=== PATIENT | female | born 1960 | race Caucasian/White ===

== ENCOUNTER → 2019-01-15 16:58 | Outpatient (CLI) | payer OTHER, SELFPAY ==
[2016-04-14 06:06] VITALS: BMI 25.6
[2019-01-18 16:20] LABS: HPV Reflexed? NOT INDICATED
== END ==
PROVIDERS: Visit Provider Obstetrics & Gynecology
DX: Z12.4 Encounter for screening for malignant neoplasm of cervix (principal)
CPT/HCPCS: 88175; G0145

== ENCOUNTER 2020-07-06 06:17 | Day surgery (SDC) | payer OTHER, SELFPAY ==
--- NOTE | 2020-06-26 11:55 | EKG12_ITS ---
Test Reason : PREOP Blood Pressure : / mmHG Vent. Rate : 064 BPM Atrial Rate : 064 BPM P-R Int : 166 ms QRS Dur : 072 ms QT Int : 392 ms P-R-T Axes : 063 000 054 degrees QTc Int : 404 ms Normal sinus rhythm Normal ECG Confirmed by PHI MOROCHO, AXEL ([id number]), restaurant expeditor GLENIS HERNANDEZ ([id number]) on 06/30/2020 8:07:35 AM Referred By: Igor Olson Confirmed By:TRISHA YIP MD
[2020-07-02 12:44] LABS: Hematocrit 42.5 % (37-47); Hemoglobin 13.5 g/dL (12.0-15.0); Mean Corp Hgb Conc 31.8 g/dL (32-36); Mean Corpuscular Hgb 28.2 pg (27.0-32.0); Mean Corpuscular Volume 88.9 fL (81-99); Mean Platelet Vol. 11.9 fl (6.2-12.0); Platelet Count 218 K/mm3 (150-450); RBC Distribution Width CV 13.5 % (11.6-14.6); RBC Distribution Width SD 44.1 fl (35.1-43.9); Red Blood Count 4.78 M/mm3 (4.2-5.4); White Blood Count 6.9 K/mm3 (4.4-11.0)
[2020-07-02 12:53] LABS: International Normalized Ratio 1.1; Partial Thromboplast Time 25.9 Seconds (24.1-36.2); Prothrombin Time (Protime)PT. 13.7 SECONDS (11.7-14.9)
[2020-07-02 13:28] LABS: ALB/GLOB Ratio 0.9 RATIO (0.9-2.4); AST(SGOT) 20 U/L (15-37); Alanine Aminotransfer ALT/SGPT 30 U/L (13-56); Albumin, Serum 3.7 g/dL (3.2-5.0); Alkaline Phosphatase 110 U/L (45-117); Anion Gap 6 (5-15); BUN 13 mg/dL (7-18); BUN/Creat Ratio 13.2 RATIO (10-20); Calcium,Total 9.2 mg/dL (8.5-10.1); Chloride 108 mmol/L (98-107); Creatinine, Serum 0.98 mg/dL (0.55-1.02); EST Glomerular Filtration Rate 62 mL/min (>60); Est Glom Filt Rate - Afr Amer 75 mL/min (>60); Glucose 88 mg/dL (74-106); Potassium 3.7 mmol/L (3.5-5.1); Protein, Total 7.7 g/dL (6.4-8.2); Sodium Level 140 mmol/L (136-145)
--- NOTE | 2020-07-05 20:51 | HP.PCM_ITS ---
History and Physical Date of Admission: 07/06/20 Surgical History and Physical Beatriz Meng, a 60 year old female 3 0 0 0 3, presents for Vaginal Hysterectomy and AP Repair on July 06, 2020 at 8:30. -- Symptomatic Uterovaginal Prolapse -- prolapse of uterus and bladder which began years ago. It occurs all the time. It is located in the vagina. Severity is severe and worsening; It is aggravated by standing or walking. It is relieved by laying down. Additional comments are: comes completely out; now affecting urine; extremely bothersome. UTERUS: 6 x 3.6 x 5.4 cm and is inhomogenous in texture. ENDOMETRIAL ECHO: 1 mm; R OVARY: 2.7 x 2.3 x 2.7 cm and contains a simple cyst measuring 1.8 x 1.7 x 2.2 cm. This is slightly smaller in size than seen on the previous ultrasound;L OVARY: Not seen and adnexa appears normal. MEDICATIONS HISTORY: Current medications prescribed by our practice are: 1. Estrace 0.01% (0.1 mg/gram) vaginal cream, one half gm per vagina twice weekly at Patient is also takin. pantoprazole 40 mg tablet,delayed release (DR/EC), daily 2. topiramate 100 mg tablet, daily ALLERGIES: NKDA Infections - Chicken pox and Measles Illnesses - Reflux, Migraines Accidents - no injuries of consequence Hospitalizations - see surgery Review of Systems: GENERAL - Denies fever, or chills SKIN - Denies skin changes EYES - Denies visual changes EARS - Denies difficulty hearing NOSE - Denies nasal congestion or bleeding MOUTH - Denies sore throat or difficulty swallowing NECK - Denies pain or swelling RESPIRATORY - Denies shortness of breath or wheezing CARDIOVASCULAR - Denies palpitations or chest pain GASTROINTESTINAL - Denies nausea, vomiting, diarrhea, constipation GENITOURINARY - Denies dysuria, frequency of urination, incontinence of urine MUSCULOSKELETAL - Denies joint or muscle pain NEUROLOGICAL - Denies localized numbness or weakness PSYCHIATRIC - Denies depression or anxiety ENDOCRINE - Denies heat or cold intolerance, weight loss or gain HEMATO-IMMUNOLOGIC - Denies excesive bleeding with cuts SOCIAL HISTORY: Alcohol Use - RARELY Smoking - 1/2 pack/day--advised to quit Diet - moderate, balanced diet Lifestyle - moderate stress lifestyle and Exercise - minimal Employer - [employer]) 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 Father: Lung cancer. Maternal Grandmother: Aneurysm. Paternal Grandmother: Heart Disease. Paternal Grandfather: Cancer of unknown orgin. MENSTRUAL HISTORY: LMP Known?- PostmenopausalAmount/Duration - 2 days, Regularity - Irregular, LMP - 02/11/14, Age Onset Menarche - 15 PAST PREGNANCIES: Total Pregnancies - 3; Full Term Pregnancies - 3; Premature - 0; Abortions, Induced - 0; Abortions, Spontaneous - 0; Ectopics - 0; Multiple Births - 0; Living Children - 3 SURGICAL HISTORY: 1. right knee surgery 2. left hand surgery 3. Tonsils, 1967 4. Tubal PHYSICAL EXAM BP- 138/82 Sitting, Right arm, regular cuff Weight- 156.52806 lbs Height- 63.75 inch BMI:27.04 CONSTITUTIONAL - NAD, well nourished, and well developed SKIN - No rash, lesions, or ulcers HEENT - Normocephalic, PERRLA, EOMI NECK - No nodes, no nuchal rigidity and thyroid normal size and texture LYMPH NODES - Palpation of lymph nodes in neck and groins within normal limits LUNGS - CTA x2 without wheezes, crackles or rales CARDIAC - Regular rate and rhythm without rubs, murmurs, or gallops BREAST - No dominant masses, no tenderness, no axillary adenopathy, no nipple discharge, no skin changes ABDOMEN - Without hepatosplenomegaly, distention, masses, rebound, or guarding; normal bowel sounds; no hernias EXTREMITIES - No edema or calf tenderness NEUROLOGICAL - Cranial nerves II-XII grossly intact PSYCHIATRIC - A and O to time, place, person, mood and affect External Genitial Vagina - non-tender without lesions Urethra/Urethral Meatus - non-tender Bladder - non-tender Vagina - loss of rugae, large cystocele and large rectocele Cervix - without cervical motion tenderness and has normal size and features without evident lesions, stenosis noted. and cervix protrudes to the introitus with bearing down Uterus - normal size, mobile and no tenderness Adnexa - no tenderness, no masses and mobile ASSESSMENT/PLAN: Incomplete Uterovaginal Prolapse Severe and symptomatic and pt desires treatment. Discussed option of pessary vs surgery and pt desires we proceed with Vaginal Hyst and AP Repair. Discussed RBAs and all questions answerd. Started intravinal estrogen in preparation.
[2020-07-06] VITALS (13 sets, daily range): BP systolic 87–153; BP diastolic 50–73; PULSE 44–58; RESP 16; TEMP 36.2–36.8; O2SAT 92–100; BMI 26.1
[2020-07-06] MEDS: Lactated Ringers 1,000 ML 100 ML IV ×3 (07:01→11:14)
[2020-07-06] MEDS: Cefotetan 2 GM in 0.9% NS 100 ML IV (08:35)
--- NOTE | 2020-07-06 08:35 | HYST_PTH ---
PATIENT: BJ GONG LOC: [facility] – [place] U#:[id number] AGE/SX: 60/F ROOM: RE07/06/[address]: Dr. Igor Olson MD : [id number] BED: DIS: 07/07/2020 SPEC #: [id number] RECD: 07/06/20 11:53 STATUS: KITA RETessa #: [id number] MOIRA: 07/06/20 08:[address]: Igor Olson DEPT: SURGICAL PATHOLOGY RECD BY: Carrol Love ENTERED: 07/06/20 12:05 SP TYPE: HYSTERECT OTHR DR: Dr. Gordo Higgins MD Tissues: Uterus, NOS Procedures: Surgery Specimen Level II Surgery Specimen Level V HEADER OPERATION: Vaginal hysterectomy, A & P repair PRE-OP DIAGNOSIS: Incomplete uterovaginal prolapse TISSUE SUBMITTED: Uterus and vaginal mucosa MICROSCOPIC DIAGNOSIS Uterus, hysterectomy: Cervix - squamous metaplasia, mild chronic inflammation and nabothian cysts. Endometrium - weakly proliferative endometrium. Myometrium - adenomyosis. Vaginal mucosa, anterior and posterior repair: Hyperkeratosis and mild chronic inflammation. No evidence of dysplasia. AM:clarita 07/07/20 MICROSCOPIC DESCRIPTION Slides are reviewed. GROSS DESCRIPTION Received in fixative is one container labeled with the patient's name and designated uterus and vaginal mucosa. The specimen consists of a hysterectomy specimen consisting of uterus with cervix and detached pieces of mucosal tissue. The uterus with cervix weighs 48 gm and measures 8 x 4 x 3 cm. The serosal surface is pollack, glistening. The ectocervical mucosa is unremarkable. The external os is oval in contour. The endocervical canal measures 2.5 cm in length and the endocervical mucosa is pollack, glistening and unremarkable. The triangular endometrial cavity measures 4 cm in length and up to 2.5 cm in width. The endometrium is pollack, glistening without any mass lesion and measures 0.1 cm in thickness. Sections of the uterine wall do not reveal any mass lesion and measures up to 2.5 cm in thickness. Also received in the container are detached four variably sized pieces of pollack mucosal tissue measuring in aggregate 5.5 x 5.5 x 0.4 cm. No mucosal lesion is identified. Numerous instrumentation rice are noted. Goldsmith Apprentice sections are submitted in seven cassettes as follows: 1 - anterior cervix, 2 - posterior cervix, 3 & 4 - anterior uterine wall, 5 & 6 - posterior uterine wall, 7 - mucosal tissue. / SJ:clarita 07/06/20 TC:5 CPT: 80276, 63017
--- NOTE | 2020-07-06 10:26 | PCM.OPRPT ---
Report of Operation Date of Procedure: 07/06/20 Pre-Operative Diagnosis: Uterovaginal Prolapse, Cystocele, Rectocele Post-Operative Diagnosis: Uterovaginal Prolapse, Cystocele, Rectocele Surgery/Procedure Performed:: Vaginal Hysterectomy and Anterior Posterior Repair Description of Surgical Findings:: 6 cm uterus with normal-appearing fallopian tubes and ovaries. Cystocele which protruded 3 cm outside the introitus along with the cervix and large rectocele. drafter civil (cad): Noe Kamara drafter civil (cad): Yamini Godfrey Type of Anesthesia:: General - LMA Anesthesiologist: Carmelita Sutton Drains: Francisco to straight drain Estimated Blood Loss (mL): 100 cc Fluids Replaced: Crystalloid Description of Procedure: Surgeon: Igor Olson MD, FACOG Indications: This is a 60-year-old patient who is been having problems with uterovaginal prolapse. Conservative measures have not been helpful. Given this the patient desires that we proceed the above procedure. She has been counseled regarding the risk and indications of this procedure including the possibility of bleeding, infection, and injury to surrounding structures such as bowel bladder. All questions were answered. Procedure: Patient was taken to the operating room where after induction of general anesthesia she was placed in the dorsal lithotomy position and prepped and draped in the usual sterile fashion. A Francisco catheter was placed. Anterior cervix was grasped with a tenaculum and anterior cervix circumscribed with cautery on a setting of 35 W coagulation. Anterior vaginal mucosa was undermined and anterior peritoneum were entered after approximately 2 bites on pedicles. The posterior aspect of the cervix was circumscribed with a knife and posterior peritoneum was entered. Progressive bites were taken on either side of the uterine cervix and each pedicle ligated with 0 Vicryl suture. Superior pedicles were ligated ?2 with 0 Vicryl suture and sidewall pedicles were examined and oversewn where necessary with [id number] 0 Vicryl suture to achieve hemostasis. Posterior vaginal cuff was oversewn with running locked 0 Vicryl suture. Hemostasis was noted and peritoneum was closed in a pursestring fashion incorporating superior pedicles into the stitch. Vaginal cuff was then closed front to back with interrupted [id number] 0 Vicryl suture. Hemostasis was noted. Attention was turned toward the anterior repair portion of the procedure. Anterior vaginal mucosa was undermined and divided and then imbricated toward the midline with interrupted 0 Vicryl sutures. Vaginal mucosa was trimmed and then closed with interrupted 2-0 chromic suture. Vaginal cuff was then closed front to back with interrupted [id number] 0 Vicryl suture. Hemostasis was noted. Attention was turned toward the posterior repair portion of the procedure. Remnants of the hymenal ring were grasped with Allises and a V-shaped incision was made in the perineum. Rectovaginal mucosa was then undermined divided and then imbricated toward the midline with interrupted 0 Vicryl suture. Vaginal mucosa was trimmed and then closed with running locked 2-0 chromic suture. Remnants of the bulbocavernosus muscles were identified and brought toward the midline with a single [id number]-trilx 0 Vicryl suture and perineum was closed in the usual fashion with running and subcuticular, and [id number] 2-0 chromic suture. Hemostasis was noted. Francisco catheter was again opened and clear yellow urine was noted. Vagina was packed with iodoform tape. Patient tolerated the procedure well was taken to recovery room in satisfactory condition; sponge instrument and needle counts were all reportedly correct. Estimated blood loss for the case was 100 cc. Ancef 2 g IV was given prior to beginning the operative procedure. There were no apparent complications of the surgery. Specimen to pathology was uterus and vaginal mucosa. Grafts/Implants Used: None - Complications None - Admit VTE Documentation VTE Present on Admission: Yes VTE Mechan Device Prophylaxis: SCD's VTE Pharm Prophylaxis ordered?: Yes
--- NOTE | 2020-07-06 10:46 | PCM.DC.VHY ---
Discharge Diet: No Restrictions Discharge Activity: Return to Normal Activity, May Not Drive - while taking narcotic pain medications., May Shower, May Take a Tub Bath May resume sexual activity in: 6-8 weeks Call your doctor if your incision/area has: Continuous Slow Oozing, Sudden Increased Bleeding, Increased Pain/ Swelling, Increased Redness, Foul Smelling Discharge Call your doctor if you observe: Fever of 101 or Higher, Inability to urinate, Inability to have a bowel movement, Using more than one pad per hour Allergies/Adverse Reactions: Allergies No Known Allergies Allergy (Verified 07/06/20 06:43) Medications to take at Discharge Pantoprazole Sodium [Protonix] 40 mg PO DAILY 03/28/16 Topiramate [Trokendi Xr] 100 mg PO DAILY 03/28/16 Docusate Sodium [Colace] 100 mg PO BID PRN PRN #60 cap 07/06/20 Oxycodone [Oxyir] 5 mg PO Q6H PRN PRN 7 Days #14 tab 07/06/20 The following prescriptions were given: Docusate Sodium [Colace] 100 mg PO BID PRN PRN #60 cap PRN Reason: Constipation Transmission Status: Received by [facility] Oxycodone [Oxyir] 5 mg PO Q6H PRN PRN 7 Days #14 tab PRN Reason: Pain Score 6-10/10 Transmission Status: Received by [facility] Orders to be completed after discharge: CBC-Complete Blood Cnt No Diff Time Frame: 06/24/20, Facility: [facility], Location: Laboratory Primary Care Physician: Gordo Higgins MD [Primary Care Provider] - Test Results: Test results from this visit will be discussed in further detail at your follow-up appointment, if applicable. Please Follow Up With: Igor Olson MD When: 2 to 3 weeks
[2020-07-06] MEDS: Dextrose 5%-Lactated Ringers 1,000 ML 150 ML IV (12:28)
[2020-07-06] MEDS: Cefazolin 1 GM/50 ML BAG IV ×2 (16:49→23:57)
[2020-07-06] MEDS: Enoxaparin 30 MG/0.3 ML Syringe SC (18:24)
[2020-07-06] MEDS: Ketorolac 30 MG/ML Syringe IV ×2 (18:24→23:57)
[2020-07-06] MEDS: 0.9% Saline Lock 10 ML Syringe IV (23:57)
[2020-07-07 05:07] VITALS: BP 102/55; PULSE 53; RESP 16; TEMP 36.8; O2SAT 97
[2020-07-07] MEDS: Ketorolac 10 MG Tablet PO (05:10)
[2020-07-07 05:49] LABS: Hematocrit 31.7 % (37-47); Hemoglobin 10.3 g/dL (12.0-15.0); Mean Corp Hgb Conc 32.5 g/dL (32-36); Mean Corpuscular Hgb 29.1 pg (27.0-32.0); Mean Corpuscular Volume 89.5 fL (81-99); Mean Platelet Vol. 11.6 fl (6.2-12.0); Platelet Count 180 K/mm3 (150-450); RBC Distribution Width CV 13.6 % (11.6-14.6); RBC Distribution Width SD 44.9 fl (35.1-43.9); Red Blood Count 3.54 M/mm3 (4.2-5.4); White Blood Count 13.8 K/mm3 (4.4-11.0)
[2020-07-07 06:09] LABS: Creatinine, Serum 0.92 mg/dL (0.55-1.02); EST Glomerular Filtration Rate 67 mL/min (>60); Est Glom Filt Rate - Afr Amer 81 mL/min (>60); Estimated Creatinine Clearance 59.98 ml/min
[2020-07-07 07:24] VITALS: O2SAT 96
[2020-07-07 08:00] VITALS: BP 112/53; PULSE 51; RESP 16; TEMP 36.8; O2SAT 97
--- NOTE | 2020-07-07 08:47 | PCM.PN.OB ---
Subjective: Patient without complaints. Tolerating diet well. Positive flatus. Vaginal pack out with minimal vaginal bleeding. Objective: Hemoglobin okay. Good urine output. - Physical Exam Vitals/I&O's: Vital Signs Temp Pulse Resp BP Pulse Ox 98.2 F 53 L 16 102/55 L 96 07/07/20 05:07 07/07/20 05:07 07/07/20 05:07 07/07/20 05:07 07/07/20 07:24 Oxygen Flow Rate (L/min) 3 Oxygen Delivery Method Room Air Weight: 156 lb 11.979 oz Body Mass Index (BMI) 26.1 Intake and Output for Last 24 Hours 07/05/20 07/06/20 07/07/20 23:59 23:59 23:59 Intake Total 4025.5 / 4725.5 1276.25 / 1276.25 Output Total 1530 / 3330 2700 / 2700 Balance 2495.5 / 1395.5 -1423.75 / -1423.75 Laboratory Results 07/07/20 05:25: WBC 13.8 H, RBC 3.54 L, Hgb 10.3 L, Hct 31.7 L, MCV 89.5, MCH 29.1, MCHC 32.5, RDW Std Deviation 44.9 H, RDW Coeff of Rebekah 13.6, Plt Count 180, MPV 11.6 07/07/20 05:25: Creatinine 0.92, Estim Creat Clear Calc 59.98, Est GFR (MDRD) Af Amer 81, Est GFR (MDRD) Non-Af 67 Current Medications Acetaminophen (Tylenol) 1,000 mg PO Q8H PRN PRN PRN Reason: Pain Score 1-3/10 or Fever Docusate Sodium (Colace) 100 mg PO BID PRN PRN PRN Reason: Constipation Hydromorphone HCl (Dilaudid Inj) 0.5 mg IV Q3H PRN PRN PRN Reason: Pain Score 4-10/10 Ketorolac Tromethamine (Toradol) 10 mg PO Q6 RASHID Stop: 07/11/20 18:01 Last Admin: 07/07/20 05:10 Dose: 10 mg Documented by: Ondansetron HCl (Zofran) 4 mg IV Q4H PRN PRN PRN Reason: NAUSEA Oxycodone HCl (Oxyir) 5 mg PO Q4H PRN PRN PRN Reason: Pain Score 4-10/10 Sodium Chloride () 10 - 40 ml IV UD PRN PRN Reason: SALINE FLUSH Last Admin: 07/06/20 23:57 Dose: 10 ml Documented by: Medical Necessity - Tobacco Use Smoking Status: Current every day smoker Tobacco Use: Cigarettes Assessment/Plan Doing well postoperative day #1 status post vaginal hysterectomy and anterior posterior repair. Will release to home with routine instructions.
--- NOTE | 2020-07-07 11:43 | PHA.DC.MC ---
Pharmacy Service has performed discharge medication reconciliation and counseling for this patient. The patient was counseled on the following discharge medications and changes in medications for homegoing were reviewed. 1. OXYCODONE 2. COLACE The Reason for Use, instructions for use, and potential side effects were reviewed for all new medications. The patient's questions regarding all of their medications were answered. The patient was able to verbally demonstrate an understanding of their discharge medications. Home Medications Pantoprazole Sodium [Protonix] 40 mg PO DAILY 03/28/16 Topiramate [Trokendi Xr] 100 mg PO DAILY 03/28/16 Docusate Sodium [Colace] 100 mg PO BID PRN PRN #60 cap 07/06/20 Oxycodone [Oxyir] 5 mg PO Q6H PRN PRN 7 Days #14 tab 07/06/20 The patient's discharge medication list was reviewed for discrepancies and discrepancies were resolved.
[2020-07-07 11:50] VITALS: BP 123/58; PULSE 49; RESP 16; TEMP 36.4; O2SAT 98
== END 2020-07-07 11:54 | disposition home or self-care (01) ==
LOC: SDC 06:18 → AC 06:23 → MS3 10:36
PROVIDERS: Anesthesiology; PCP Family Medicine; Referring Provider Obstetrics & Gynecology; Visit Provider Obstetrics & Gynecology
PROC: (CPT 58260; principal; 2020-07-06 08:15)
DX: N87.9 Dysplasia of cervix uteri, unspecified (principal); N72 Inflammatory disease of cervix uteri; N88.8 Other specified noninflammatory disorders of cervix uteri; N80.0 Endometriosis of uterus; N90.4 Leukoplakia of vulva; F17.210 Nicotine dependence, cigarettes, uncomplicated; K21.9 Gastro-esophageal reflux disease without esophagitis; Z11.59 Encounter for screening for other viral diseases; Z79.899 Other long term (current) drug therapy
CPT/HCPCS: 00944; 57260; 58260; 36415; 80053; 82565; 85027; 85610; 85730; 86850; 86900; 86901; 87635; 88302; 88307; 93005; 99406; C9803; J7120; A4216; J2405; U0003